=== PATIENT | female | born 1970 | race American Indian/Alaskan Native ===

== ENCOUNTER 2018-10-20 14:10 | Emergency (ER) | payer OTHER ==
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
[2018-10-20] MEDS ORDERED: NORCO 5/325 PO STA (14:49)
[2018-10-20 14:50] VITALS: BP 133/72
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
--- NOTE | 2018-10-20 17:38 | XRay Report ---
PROCEDURE: XR SPINE CERVICAL 2-3V TECHNIQUE: 4 radiographs of the cervical spine obtained. HISTORY: neck pain COMPARISONS: None FINDINGS: No acute fracture or subluxation. Vertebral body heights are maintained. Mild to moderate degenerative changes seen at C5/C6 and C6/C7. IMPRESSION: No acute fracture or subluxation.. Mild to moderate degenerative changes seen at C5/C6 and C6/C7. This document is electronically signed by Trudi Conley MD., Oct 20 2018 05:36:29 PM ET
== END 2018-10-20 17:26 | disposition home or self-care (01) ==
LOC: ED 14:10
DX: S46.812A Strain of other muscles, fascia and tendons at shoulder and upper arm level, left arm, initial encounter (principal); M54.9 Dorsalgia, unspecified; M54.2 Cervicalgia; V89.2XXA Person injured in unspecified motor-vehicle accident, traffic, initial encounter; Y93.89 Activity, other specified; Y92.488 Other paved roadways as the place of occurrence of the external cause; Y99.8 Other external cause status
CPT/HCPCS: 72040; 72100; 99284